=== PATIENT | male | born 2000 | race Caucasian/White ===

== ENCOUNTER 2019-04-28 14:39 | Emergency (ER) | payer MEDICAID, OTHER | END 2019-04-28 17:17 | disposition home or self-care (01) | LOC: FTE 14:39 | DX: S00.83XA Contusion of other part of head, initial encounter (principal); Y04.2XXA Assault by strike against or bumped into by another person, initial encounter; Y92.9 Unspecified place or not applicable | CPT/HCPCS: 70450; 70486; 99284-25 ==